=== PATIENT | female | born 1940 ===

== ENCOUNTER → 2017-11-14 | Outpatient (CLI) | payer OTHER, MEDICAID | LOC: SUPIMAGING 15:46 | PROVIDERS: ATTEND Family Medicine | DX: M48.56XA Collapsed vertebra, not elsewhere classified, lumbar region, initial encounter for fracture (principal); M48.54XA Collapsed vertebra, not elsewhere classified, thoracic region, initial encounter for fracture; M79.604 Pain in right leg | CPT/HCPCS: 72072-PN; 72100-PN; 73590-PN ==